=== PATIENT | female | born 1955 | race Caucasian/White ===

== ENCOUNTER → 2017-03-07 | Outpatient (CLI) | payer OTHER | END | disposition home or self-care (01) | LOC: RAH 10:11 | PROVIDERS: ATTEND Physician Assistant Medical | DX: J44.9 Chronic obstructive pulmonary disease, unspecified (principal); I51.7 Cardiomegaly | CPT/HCPCS: 71046 ==

== ENCOUNTER 2019-03-13 10:32 | Observation (INO) | payer OTHER ==
[~2019-03-13] VITALS: Ht 162.6 cm; Wt 73.8 kg
[2019-03-13] MEDS ORDERED: ASPIRIN 325 MG TABLET ONE (10:39)
[2019-03-13 11:06] LABS: BASOPHILS % (AUTO) 0.2 % (0.0-5.0); EOSINOPHILS % (AUTO) 2.7 % (0.0-8.0); HEMATOCRIT 38.9 % (36-48); MEAN CORPUSCULAR HEMOGLOBIN 28.9 pg (27.0-33.0); MEAN CORPUSCULAR HGB CONC 34.7 g/dL (32.0-36.0); MEAN CORPUSCULAR VOLUME 83.3 fL (79-99); MONOCYTES % (AUTO) 5.4 % (3.0-13.0); PLATELET COUNT (AUTO) 160 K/uL (130-400); RED BLOOD CELL COUNT(AUTO) 4.67 MIL/uL (4.00-5.50); RED CELL DISTRIBUTION WIDTH 12.5 % (11.0-15.5); WHITE BLOOD COUNT (AUTO) 4.1 K/uL (4.8-10.8)
[2019-03-13 11:17] LABS: CREATININE 1.1 mg/dL (0.5-1.5); POTASSIUM 3.7 mmol/L (3.5-5.1)
[2019-03-13 11:21] LABS: ALBUMIN 3.7 g/dL (3.5-5.0); BILIRUBIN,TOTAL 0.8 mg/dL (0.2-1.0); TOTAL PROTEIN, SERUM 6.7 g/dL (6.0-8.3)
[2019-03-13 11:41] LABS: APPEARANCE,URINE Clear (CLEAR); BILIRUBIN,URINE Negative (NEGATIVE); COLOR,URINE Yellow (YELLOW); GLUCOSE, URINE (UA) Negative (NEGATIVE); KETONES,URINE Negative (NEGATIVE); LEUKOCYTE ESTERASE ,URINE Negative (NEGATIVE); NITRATE,URINE Negative (NEGATIVE); OCCULT BLOOD,URINE Negative (NEGATIVE); PROTEIN,URINE Negative (NEGATIVE); UROBILINOGEN,URINE 0.2 mg/dL (0.2-1.0)
[2019-03-13 11:49] LABS: AMPHET/METH SCREEN,URINE NEGATIVE (NEGATIVE); BARBITURATE SCREEN, URINE NEGATIVE (NEGATIVE); BENZODIAZEPINES SCREEN,URINE NEGATIVE (NEGATIVE); CANNABINOID SCREEN,URINE NEGATIVE (NEGATIVE); COCAINE SCREEN,URINE NEGATIVE (NEGATIVE); OPIATE SCREEN,URINE NEGATIVE (NEGATIVE); PHENCYCLIDINE SCREEN,URINE NEGATIVE (NEGATIVE)
[2019-03-13 12:03] LABS: INR 0.95 (0.85-1.15); PARTIAL THROMBOPLASTIN TIME 25.9 SEC (26.3-35.5)
[2019-03-13] MEDS ORDERED: ACETAMINOPHEN 325 MG TAB PO PRN (15:15)
[2019-03-13] MEDS ORDERED: LABETALOL 20 MG/4 ML DISP.SYRIN IV PRN (15:15)
[2019-03-13] MEDS ORDERED: IOHEXOL-350 75 ML VIAL IV ONE (16:03)
[2019-03-13 16:42] LABS: HEMOGLOBIN A1C 5.5 % (4.0-6.0)
[2019-03-13 16:47] LABS: CHOLESTEROL 151 mg/dL (<200); HDL CHOLESTEROL 50 mg/dL (35-85); LDL DIRECT 83 mg/dL (0-99); TRIGLYCERIDES 144 mg/dL (30-200)
--- NOTE | 2019-03-13 17:30 | NUR ---
ARRIVAL TO FLOOR PT IS AAOX3 DENIES CP DENIES SOB DENIES NV NO COMPLAINTS, BREATHING PATTERN IS EVEN AND UNLABORED. SPEECH IS CLEAR AND COHERENT, EQUAL STRENGTHS TO ALL 4 EXTREMITIES NOTED. NO FACIAL DROOPING NOTED. NO COMPLAINTS. SITTING UP IN BED. FAMILY IS AT BEDSIDE, CALL LIGHT WITHIN REACH.
[2019-03-13] MEDS ORDERED: TERBINAFINE PO (17:32)
[2019-03-13] MEDS ORDERED: CLOP75TA14 PO (17:32)
[2019-03-13] MEDS ORDERED: ATOR40TA71 PO (17:32)
[2019-03-13] MEDS ORDERED: METO-408 PO (17:32)
[2019-03-13 20:09] VITALS: BP 150/72
[2019-03-13] MEDS: FAMOTIDINE/PF 20 MG/2 ML VIAL IV SCH (20:24)
[2019-03-13] MEDS: HEPARIN SODIUM 5000UNIT/ML 1ML VIAL SQ SCH (21:00)
[2019-03-13 23:46] VITALS: BP 127/67
[2019-03-14 03:34] VITALS: BP 130/64
[2019-03-14 07:30] VITALS: BP 145/73
[2019-03-14] MEDS: FAMOTIDINE/PF 20 MG/2 ML VIAL IV SCH ×2 (07:50→21:24)
[2019-03-14] MEDS: ASPIRIN 81MG TAB.CHEW PO SCH (07:50)
[2019-03-14] MEDS: HEPARIN SODIUM 5000UNIT/ML 1ML VIAL SQ SCH ×2 (07:52→21:27)
--- NOTE | 2019-03-14 08:00 | NUR ---
ASSESSMENT PT IS AAOX3 DENIES CP DENIES SOB DENIES NV NO COMPLAINTS, NO NEURO DEFICITS NOTED. RESTING IN BED, FAMILY IS AT BEDSIDE. CALL LIGHT WITHIN REACH.
[2019-03-14 11:30] VITALS: BP 140/73
--- NOTE | 2019-03-14 14:00 | NUR ---
Anatoliy FISCHER SAW PATIENT, ORDERS RECEIVED.
[2019-03-14 15:30] VITALS: BP 141/94
--- NOTE | 2019-03-14 16:55 | NUR ---
INITIAL: Met with pt and spouse this afternoon to discuss dcp. Pt mentions that she is a [place] from [facility]. She mentions that she is currently in a 5th wheel and is [facility]. Per pt she is independent w ambulation and ADls. She owns a cpap. Pt states that she feels safe and comfortable to return to her 5th wheel @ [facility]. CM to continue to follow and wait for Md recommendations. Addendum: 03/14/19 at 1659 by BRO GONZALEZ Amended: Links added.
[2019-03-14 19:38] VITALS: BP 142/64
[2019-03-14] MEDS: ATORVASTATIN CALCIUM 40 MG TABLET PO SCH (21:24)
[2019-03-14 23:59] VITALS: BP 156/66
[2019-03-15 04:02] VITALS: BP 154/67
[2019-03-15 04:18] LABS: BASOPHILS % (AUTO) 0.2 % (0.0-5.0); EOSINOPHILS % (AUTO) 4.1 % (0.0-8.0); HEMATOCRIT 36.3 % (36-48); LYMPHOCYTES % (AUTO) 38.4 % (21.0-51.0); MEAN CORPUSCULAR HEMOGLOBIN 28.2 pg (27.0-33.0); MEAN CORPUSCULAR HGB CONC 33.6 g/dL (32.0-36.0); MONOCYTES % (AUTO) 6.8 % (3.0-13.0); PLATELET COUNT (AUTO) 151 K/uL (130-400); RED BLOOD CELL COUNT(AUTO) 4.32 MIL/uL (4.00-5.50); RED CELL DISTRIBUTION WIDTH 12.3 % (11.0-15.5); WHITE BLOOD COUNT (AUTO) 4.4 K/uL (4.8-10.8)
[2019-03-15 04:37] LABS: POTASSIUM 3.9 mmol/L (3.5-5.1)
[2019-03-15] MEDS: ASPIRIN 81MG TAB.CHEW PO SCH (07:54)
[2019-03-15] MEDS: CLOPIDOGREL BISULFATE 75 MG TAB PO SCH (07:54)
[2019-03-15] MEDS: FAMOTIDINE/PF 20 MG/2 ML VIAL IV SCH ×2 (07:55→20:42)
[2019-03-15] MEDS: METOPROLOL SUCCINATE 50 MG TAB.SR.24H PO SCH (07:57)
[2019-03-15 08:00] VITALS: BP 139/73
[2019-03-15] MEDS: HEPARIN SODIUM 5000UNIT/ML 1ML VIAL SQ SCH ×2 (08:02→20:22)
--- NOTE | 2019-03-15 08:58 | NUR ---
DR. COURTNEY IN ROOM SPEAKING WITH PT. AND PT.'S SPOUSE AT BEDSIDE RE:PLAN OF CARE. QUESTIONS ANSWERED BY DR. COURTNEY.
--- NOTE | 2019-03-15 09:57 | NUR ---
DR. JASSO IN ROOM WITH PT. FOR CONSULT; PT.'S SPOUSE AT BEDSIDE.
--- NOTE | 2019-03-15 11:00 | NUR ---
COGNITIVE EVAL COMPLETE. COGNITIVE-LINGUISTIC ABILITIES WITHIN FUNCTIONAL LIMITS. EVALUATION: Pt AAOX3. Pt REQUESTS WANTS AND NEEDS INDEPENDENTLY. Pt INTELLIGIBLE AT 100% ACCURACY TO THE UNFAMILIAR LISTENER. Pt COMMUNICATING AT CONVERSATIONAL LEVEL WITH NO DEFICITS IDENTIFIED AT THIS TIME. Pt COMPLETED COGNITIVE-LINGUISTIC EVALUATION TARGETING: ORIENTATION, ATTENTION/CONCENTRATION, IMMEDIATE MEMORY, PROBLEM SOLVING, LOGIC/REASONING/INFERENCE, THOUGHT ORGANIZATION, FUNCTIONAL MATH AND TELLING TIME. Pt ABLE TO COMPLETE TASKS WITH CORRECT AND TIMELY ANSWERS TO ALL SECTIONS. 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 SHE IS CURRENTLY AT BASELINE. G-CODES MEMORY: [id number] Addendum: 03/15/19 at 1353 by NORMA PIZANO, [facility] Amended: Links added.
--- NOTE | 2019-03-15 11:15 | NUR ---
DYSPHAGIA EVAL COMPLETE. -S/S OF ASPIRATION. RECOMMEND REGULAR, THIN LIQUID DIET; PILLS WHOLE WITH LIQUIDS. Addendum: 03/15/19 at 1359 by NORMA PIZANO, [facility] Amended: Links added.
[2019-03-15 11:43] VITALS: BP 144/64
[2019-03-15] MEDS ORDERED: ASPI-1005 PO (15:28)
[2019-03-15 15:49] VITALS: BP 144/77
--- NOTE | 2019-03-15 18:15 | NUR ---
AMBULATING IN HALLWAY WITH STEADY GAIT ACCOMPANIED BY SPOUSE. DENIES ANY C/O AT THIS TIME.
--- NOTE | 2019-03-15 18:29 | NUR ---
[facility] REPORT PENDING AT THIS TIME.
[2019-03-15 19:42] VITALS: BP 130/61
[2019-03-15] MEDS: ATORVASTATIN CALCIUM 40 MG TABLET PO SCH (20:42)
[2019-03-15 23:53] VITALS: BP 139/68
[2019-03-16 03:00] VITALS: BP 134/63
[2019-03-16 04:18] LABS: BASOPHILS % (AUTO) 0.2 % (0.0-5.0); EOSINOPHILS % (AUTO) 3.3 % (0.0-8.0); HEMATOCRIT 37.1 % (36-48); MEAN CORPUSCULAR HEMOGLOBIN 28.3 pg (27.0-33.0); MEAN CORPUSCULAR VOLUME 83.2 fL (79-99); MONOCYTES % (AUTO) 9.3 % (3.0-13.0); NEUTROPHILS % (AUTO) 54.8 % (40.0-77.0); PLATELET COUNT (AUTO) 159 K/uL (130-400); RED BLOOD CELL COUNT(AUTO) 4.46 MIL/uL (4.00-5.50); RED CELL DISTRIBUTION WIDTH 12.3 % (11.0-15.5); WHITE BLOOD COUNT (AUTO) 4.5 K/uL (4.8-10.8)
[2019-03-16 04:51] LABS: CREATININE 0.9 mg/dL (0.5-1.5); POTASSIUM 3.5 mmol/L (3.5-5.1)
[2019-03-16 07:37] VITALS: BP 136/84
--- NOTE | 2019-03-16 08:21 | NUR ---
CHART REVIEWED 2D ECHO REPORT REVIWED, DC ORDERS BY 2 DOCS NOTED
[2019-03-16] MEDS: ASPIRIN 81MG TAB.CHEW PO SCH (08:44)
[2019-03-16] MEDS: HEPARIN SODIUM 5000UNIT/ML 1ML VIAL SQ SCH (08:44)
[2019-03-16] MEDS: FAMOTIDINE/PF 20 MG/2 ML VIAL IV SCH (08:44)
[2019-03-16] MEDS: CLOPIDOGREL BISULFATE 75 MG TAB PO SCH (08:44)
[2019-03-16] MEDS: METOPROLOL SUCCINATE 50 MG TAB.SR.24H PO SCH (08:51)
--- NOTE | 2019-03-16 10:35 | NUR ---
HL REMOVED, CATHETER INTACT. DISCHARGE INSTRUCTIONS PROVIDED TO PT. AND SPOUSE AT BEDSIDE, VERBALIZED MUTUAL UNDERSTANDING.
== END 2019-03-16 10:58 | disposition home or self-care (01) ==
LOC: EDH 10:32 → EDHIP 15:13 → 2AH 17:11
PROVIDERS: ADMIT Internal Medicine; ATTEND Internal Medicine
DX: I63.9 Cerebral infarction, unspecified (principal); I10 Essential (primary) hypertension; Z87.891 Personal history of nicotine dependence; Z86.69 Personal history of other diseases of the nervous system and sense organs; Z79.899 Other long term (current) drug therapy; Z88.1 Allergy status to other antibiotic agents
CPT/HCPCS: 36415 ×3; 70450; 70496; 70498; 70551; 71045; 72141; 80048 ×2; 80053; 80061; 80305; 81003; 82248; 82550; 82948; 83036; 83721; 84484; 85025 ×3; 85610; 85651; 85730; 92522; 92610; 93005; 93306; 93880; 96372 ×4; 96374; 96376 ×3; 97161; 99284; G0378 ×65; G8978; G8979; G8980; G8981; G8982; G8983; J1644 ×6; J3490 ×6; Q9967